=== PATIENT | male | born 1965 | race Caucasian/White ===

== ENCOUNTER 2017-01-20 08:54 | Emergency (ER) | payer BC ==
[~2017-01-20 08:54] MED LIST: NO MEDICATIONS
== END 2017-01-20 09:09 | disposition home or self-care (01) ==
LOC: SED 08:54
DX: S39.012A Strain of muscle, fascia and tendon of lower back, initial encounter (principal); S29.012A Strain of muscle and tendon of back wall of thorax, initial encounter; F17.200 Nicotine dependence, unspecified, uncomplicated; X50.9XXA Other and unspecified overexertion or strenuous movements or postures, initial encounter
CPT/HCPCS: 99282; 99283